=== PATIENT | male | born 1960 | race Caucasian/White ===

== ENCOUNTER → 2024-06-08 08:46 | Outpatient (REF) | payer OTHER, SELFPAY | LOC: MRI 08:46 | PROVIDERS: ATTENDING PHYSICIAN Internal Medicine | DX: M54.12 Radiculopathy, cervical region (principal); M54.16 Radiculopathy, lumbar region | CPT/HCPCS: 72141; 72148 ==

== ENCOUNTER 2024-09-16 12:30 | Outpatient (RCR) | payer OTHER, SELFPAY | END 2024-09-16 23:59 | disposition home or self-care (01) | LOC: RPT 12:30 | PROVIDERS: ATTENDING PHYSICIAN Orthopaedic Surgery Orthopaedic Surgery of the Spine; FAMILY PHYSICIAN Internal Medicine | DX: M48.062 Spinal stenosis, lumbar region with neurogenic claudication (principal); M54.12 Radiculopathy, cervical region; Z73.6 Limitation of activities due to disability; M79.601 Pain in right arm; R20.2 Paresthesia of skin; M79.651 Pain in right thigh; R10.30 Lower abdominal pain, unspecified; R20.0 Anesthesia of skin | CPT/HCPCS: 97110; 97162 ==